=== PATIENT | female | born 2000 | race Caucasian/White ===

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

== ENCOUNTER 2020-06-23 05:17 | Observation (INO) ==
[2020-06-23] MEDS ORDERED: SODIUM CHLORIDE 0.9% 1000ML 1,000 ML IV ONE (05:39)
[2020-06-23] MEDS ORDERED: ONDANSETRON INJ 2 MG/ML 2 ML VIAL IV STA (05:39)
[2020-06-23] MEDS ORDERED: MoRPHine SULFATE 4 MG/ML 1 ML CARP\\VIAL IV STA (05:39)
--- NOTE | 2020-06-23 05:43 | Emergency Department Note ---
History of Present Illness General Chief complaint: Abdominal Pain Stated complaint: ABD PAIN,VOMITING Time Seen by Provider: 06/23/20 05:26 Source: patient Mode of arrival: ambulatory Limitations: no limitations History of Present Illness Maximum Pain Intensity: 8 This patient is a 19-year-old female who presents to the emergency department for evaluation of abdominal pain, vomiting and vaginal bleeding. Patient states that she was recently diagnosed with an ectopic . She was seen here 5 days ago and given methotrexate. She states that 2 days later, she was here due to some pain and it was recommended that she stay, but she wanted to go home. She states that she was doing okay yesterday, but her pain started about 2 hours prior to arrival and became severe. Pain is located across lower abdomen and radiates into the tailbone. She has had vomiting. She states that she has had some vaginal spotting which is brownish in color. She rates her current discomfort an 8/10. She has been taking Tylenol for pain which is no longer giving her any relief. She has had one prior which ended in a full- term normal vaginal delivery. Home Medications Home Medications Medication Instructions Recorded Confirmed Type No Known Home Medications 06/19/20 06/23/20 History Allergies Allergy/AdvReac Type Severity Reaction Status Date / Time amoxicillin Allergy Intermediate swelling Verified 06/23/20 06:02 Penicillins Allergy Intermediate Hives Verified 06/23/20 06:02 Past Med/Surg History Medical History Asthma No known health problems Social History Smoking Status: Never smoker Tobacco Type: Cigarettes Hx Alcohol Use: No Hx Substance Use: No Preferred Language: Frisian Communication Ability: Effective General Contractor Required: No Beliefs That Will Affect Care: None Current Living Situation: Other Current Living Situation Comment: Lives with boyfriend, Laron, and her daughter, Bridget 4 years old Other Information That Helps Us Care for You: No Feels Safe at Home: Yes Review of Systems A total of 10 systems reviewed and were otherwise negative Physical Exam Vital Signs Vital Signs - 24 hr 06/23/20 05:23 06/23/20 07:45 06/23/20 09:19 Temperature 36.4 C L Temperature Source Oral Pulse Rate 83 Pulse Rate [Apical] 96 H 85 Respiratory Rate 18 16 Respiratory Depth Normal Blood Pressure 92/64 L Blood Pressure [Right Arm] 99/62 L 89/52 L Blood Pressure Mean 73 Blood Pressure Mean [Right Arm] 74 64 Pulse Oximetry 98 Oxygen Delivery Method Room Air Sepsis Recent Fever Within 48 Hours No Sepsis New/Unexplained Change in Mental Status N/A Sepsis Action Taken by Nursing No Action Required 06/23/20 10:03 Temperature Temperature Source Pulse Rate 89 Pulse Rate [Apical] Respiratory Rate 16 Respiratory Depth Blood Pressure 95/60 L Blood Pressure [Right Arm] Blood Pressure Mean Blood Pressure Mean [Right Arm] Pulse Oximetry 96 Oxygen Delivery Method Room Air Sepsis Recent Fever Within 48 Hours Sepsis New/Unexplained Change in Mental Status Sepsis Action Taken by Nursing VITALS: Vitals are noted on the nurse's note and reviewed by myself. Vital signs stable. GENERAL: This is a 19-year-old female, in mild distress and appears to be in pain, well-developed well-nourished. SKIN: The skin was without rashes. EARS: External auditory canals clear, tympanic membranes pearly reeves without erythema or effusion bilaterally. EYES: Pupils equal round and reactive to light and accommodation. MOUTH: Mucous membranes moist. Tonsils are not enlarged. Pharynx without er ythema or exudate. NECK: Supple without nuchal rigidity. No lymphadenopathy. HEART: Regular rate and rhythm without murmurs gallops or rubs. LUNGS: Clear to auscultation bilaterally without wheezes, rales or rhonchi. ABDOMEN: Positive bowel sounds x 4. There is tenderness to palpation across lo wer abdomen. No guarding or rebound tenderness. NEURO: Patient was alert and oriented to person place and time. Course Consultations Consultation #1: Dr. Naranjo - COPIER OPERATOR Administered Medications Discontinued Medications Bupivacaine HCl (Bupivacaine 0.5 % 5 Mg/1 Ml Mpf 30ml Vial) Confirm Administered Dose 30 ml .ROUTE .STK-MED ONE Stop: 06/23/20 09:55 Last Admin: 06/23/20 11:11 Dose: 30 ml Documented by: [id number] Sodium Chloride (Nss 1000ml) 1,000 mls @ 999 mls/hr IV .Q1H1M ONE Stop: 06/23/20 06:39 Last Infusion: 06/23/20 07:00 Dose: 0 mls/hr Documented by: [id number] Admin: 06/23/20 05:57 Dose: 999 mls/hr Documented by: [id number] Lactated Ringer's (Lr) 1,000 mls @ 125 mls/hr IV .Q8H OCTAVIO Stop: 06/23/20 13:59 Last Infusion: 06/23/20 16:16 Dose: 0 mls/hr Documented by: [id number] Admin: 06/23/20 14:40 Dose: 125 mls/hr Documented by: [id number] Ibuprofen (Ibuprofen 600 Mg Tab) 600 mg PO Q4H PRN PRN Reason: ANGELO,cramping, or edema Stop: 07/23/20 12:46 Last Admin: 06/23/20 14:40 Dose: 600 mg Documented by: [id number] Menthol (Cough Drop (Sugar Free) Melvin 24 Melvin/1 Box) Confirm Administered Dose 24 melvin BUCCAL .STK-MED ONE Stop: 06/23/20 14:45 Last Admin: 06/23/20 14:44 Dose: 24 melvin Documented by: [id number] Morphine Sulfate (Morphine Sulfate 4 Mg/Ml 1 Ml Carp\Vial) 4 mg IV NOW STA Stop: 06/23/20 05:40 Last Admin: 06/23/20 05:57 Dose: 4 mg Documented by: [id number] Morphine Sulfate (Morphine Sulfate 2 Mg/Ml Carp) 2 mg IV Q2HWA PRN PRN Reason: Pain Stop: 07/07/20 13:32 Last Admin: 06/23/20 13:42 Dose: 2 mg Documented by: [id number] Ondansetron HCl (Ondansetron Inj 2 Mg/Ml 2 Ml Vial) 4 mg IV NOW STA Stop: 06/23/20 05:40 Last Admin: 06/23/20 05:57 Dose: 4 mg Documented by: [id number] Oxycodone/Acetaminophen (Oxycodone/Acetaminophen 5mg/325mg Tab) 1 - 2 tab PO Q4H PRN PRN Reason: ANGELO, Cramping or edema Stop: 07/07/20 12:47 Last Admin: 06/23/20 16:17 Dose: 1 tab Documented by: [id number] Medical Decision Making Differential Diagnosis Differential diagnosis includes ectopic , hemoperitoneum, anemia, among others. Medical Records Attestation: I reviewed the patient's medical records. Home Medications Current Medication List: was personally reviewed by me Laboratory Data Attestation: I reviewed the patient's lab results. Result diagrams: 06/23/20 05:45 06/23/20 05:45 Lab Results 06/23/20 06/23/20 06/23/20 Range/Units 05:45 05:45 05:45 WBC 6.14 (4.8-10.8) K/uL RBC 3.46 L (4.2-5.4) M/uL Hgb 10.7 L (12.0-16.0) g/dL Hct 30.3 L (37-47) % MCV 87.6 (80-100) fL MCH 30.9 (25-34) pg MCHC 35.3 (32-36) g/dL RDW Std Deviation 38.1 (36.4-46.3) fL RDW Coeff of Jamel 11.9 (11.5-14.5) % Plt Count 178 (130-400) K/uL MPV 9.3 (7.4-10.4) fL Immature Gran % (Auto) 0.2 % Neut % (Auto) 66.5 % Lymph % (Auto) 23.6 % Ceiba % (Auto) 7.8 % Eos % (Auto) 1.6 % Baso % (Auto) 0.3 % Neut # (Auto) 4.08 (1.4-6.5) K/uL Lymph # (Auto) 1.45 (1.2-3.4) K/uL Ceiba # (Auto) 0.48 (0.11-0.59) K/uL Eos # (Auto) 0.10 (0-0.5) K/uL Baso # (Auto) 0.02 (0-0.2) K/uL Immature Gran # (Auto) 0.01 (0.00-0.02) K/uL Sodium 139 (136-145) mmol/L Potassium 3.3 L (3.5-5.1) mmol/L Chloride 108 H (98-107) mmol/L Carbon Dioxide 23 (21-32) mmol/L Anion Gap 8.0 (3-11) BUN 8 (7-18) mg/dl Creatinine 0.56 L (0.6-1.2) mg/dl Est Cr Clr Drug Dosing Not Reportable Est GFR ( Amer) > 150.0 Est GFR (Non-Af Amer) 135.2 BUN/Creatinine Ratio 14.6 (10-20) Glucose 99 (70-99) mg/dl Calcium 8.7 (8.5-10.1) mg/dl Total Bilirubin 0.4 (0.2-1) mg/dl AST 13 L (15-37) U/L ALT 22 (12-78) U/L Alkaline Phosphatase 55 (45-117) U/L Total Protein 7.1 (6.4-8.2) gm/dl Albumin 3.5 (3.4-5.0) gm/dl Globulin 3.6 (2.5-4.0) gm/dl Albumin/Globulin Ratio 1.0 (0.9-2) HCG, Quant 3392 mIU/ml Urine Color Urine Appearance (Clear) Urine pH (4.5-7.5) Ur Specific [place] (1.000-1.030) Urine Protein (Negative) Urine Glucose (UA) (Negative) Urine Ketones (Negative) Urine Blood (Negative) Urine Nitrite (Negative) Urine Bilirubin (Negative) Urine Urobilinogen (Negative) Ur Leukocyte Esterase (Negative) Urine WBC (Auto) (0-5) /hpf Urine RBC (Auto) (0-4) /hpf U Hyaline Cast (Auto) (0-5) /lpf U Epithel Cells (Auto) (0-5) /lpf Urine Bacteria (Auto) (Negative) Calcium Oxalate Crystal (None Prsent) 06/23/20 Range/Units 07:07 WBC (4.8-10.8) K/uL RBC (4.2-5.4) M/uL Hgb (12.0-16.0) g/dL Hct (37-47) % MCV (80-100) fL MCH (25-34) pg MCHC (32-36) g/dL RDW Std Deviation (36.4-46.3) fL RDW Coeff of Jamel (11.5-14.5) % Plt Count (130-400) K/uL MPV (7.4-10.4) fL Immature Gran % (Auto) % Neut % (Auto) % Lymph % (Auto) % Ceiba % (Auto) % Eos % (Auto) % Baso % (Auto) % Neut # (Auto) (1.4-6.5) K/uL Lymph # (Auto) (1.2-3.4) K/uL Ceiba # (Auto) (0.11-0.59) K/uL Eos # (Auto) (0-0.5) K/uL Baso # (Auto) (0-0.2) K/uL Immature Gran # (Auto) (0.00-0.02) K/uL Sodium (136-145) mmol/L Potassium (3.5-5.1) mmol/L Chloride (98-107) mmol/L Carbon Dioxide (21-32) mmol/L Anion Gap (3-11) BUN (7-18) mg/dl Creatinine (0.6-1.2) mg/dl Est Cr Clr Drug Dosing Est GFR ( Amer) Est GFR (Non-Af Amer) BUN/Creatinine Ratio (10-20) Glucose (70-99) mg/dl Calcium (8.5-10.1) mg/dl Total Bilirubin (0.2-1) mg/dl AST (15-37) U/L ALT (12-78) U/L Alkaline Phosphatase (45-117) U/L Total Protein (6.4-8.2) gm/dl Albumin (3.4-5.0) gm/dl Globulin (2.5-4.0) gm/dl Albumin/Globulin Ratio (0.9-2) HCG, Quant mIU/ml Urine Color Yellow Urine Appearance Turbid A (Clear) Urine pH 7.5 (4.5-7.5) Ur Specific [place] 1.013 (1.000-1.030) Urine Protein Negative (Negative) Urine Glucose (UA) Negative (Negative) Urine Ketones Negative (Negative) Urine Blood 3+ H (Negative) Urine Nitrite Negative (Negative) Urine Bilirubin Negative (Negative) Urine Urobilinogen Negative (Negative) Ur Leukocyte Esterase 2+ H (Negative) Urine WBC (Auto) 5-10 H (0-5) /hpf Urine RBC (Auto) 0-4 (0-4) /hpf U Hyaline Cast (Auto) 1-5 (0-5) /lpf U Epithel Cells (Auto) >30 H (0-5) /lpf Urine Bacteria (Auto) 2+ H (Negative) Calcium Oxalate Crystal Present A (None Prsent) Imaging Data Attestation: I personally reviewed and interpreted this imaging study as follows: Radiologist's Impression: US ectopic CLINICAL HISTORY: right ectopic , worsening right-sided pelvic pain COMPARISON STUDY: Obstetrical ultrasound 06/21/2020. FINDINGS: There is a thick-walled cystic lesion within the right adnexa which is separate from the ovary. This measures 1.9 x 1.9 cm which is similar in size compared to the prior study. No yolk sac or pole identified. This likely represents an ectopic . Moderate amount of complex free fluid is again identified which favors hemoperitoneum. This is similar to the prior study. Slightly complex cystic focus within the fundus the endometrium is again noted measuring 1.7 x 1.3 x 0.3 cm. This has slightly decreased in size. Bilateral ova franko follicles/cysts persist. Normal color flow within the bilateral ovaries. No uterine masses identified. IMPRESSION: 1. No significant change in 1.9 cm thick-walled cystic focus within the right adnexa which is separate from the ovary likely representing an ectopic . 2. Moderate amount of complex free fluid again noted consistent with hemoperitoneum. Gynecologic consultation recommended. 3. Slight decrease in size in a slightly complex cystic focus within the fundus the endometrium. Blood Pressure Blood Pressure Findings: Low blood pressure MDM Narrative The patient is a 19-year-old female who presents today complaining of worsening abdominal pain and vomiting. Patient has a known right-sided ectopic and was treated with methotrexate 4 days prior. Her beta-hCG has increased slightly to 3392. She is anemic with hemoglobin of 10.7, decreased from her baseline of 12.7. An ultrasound was performed and again shows the right-sided ectopic as well as hemoperitoneum. [facility] COPIER OPERATOR was consulted and will evaluate the patient for further care and likely operative management. Impression & Plan Ectopic , Hemoperitoneum Discharge Plan Visit Data Chief Complaint: Abdominal Pain Stated Complaint: ABD PAIN,VOMITING ED Provider: Jackie Jean ED Midlevel Provider: Yasemin Rodriguez Discharge Problem: Ectopic , Hemoperitoneum Patient Disposition: Still a Patient Condition: Good Discharge Instructions Interventions: ED Discharge Assessment Last Done: 06/23/20 10:03 Discharge Problem: Ectopic Qualifiers: Location of ectopic : tubal Intrauterine status: unspecified Laterality: right Qualified Code(s): O00.101 - Right tubal without intrauterine
[2020-06-23 05:58] LABS: Basophils # (auto) 0.02 K/uL (0-0.2); Basophils % (auto) 0.3 %; Eosinophils % (auto) 1.6 %; Hematocrit (blood only) 30.3 % (37-47); Hemoglobin 10.7 g/dL (12.0-16.0); Immature Granulocytes # (auto) 0.01 K/uL (0.00-0.02); Immature Granulocytes % (auto) 0.2 %; Lymphocytes # (auto) 1.45 K/uL (1.2-3.4); Lymphocytes % (auto) 23.6 %; Mean Corpuscular Hemoglobin 30.9 pg (25-34); Mean Corpuscular Hgb Conc 35.3 g/dL (32-36); Mean Corpuscular Volume 87.6 fL (80-100); Mean Platelet Volume 9.3 fL (7.4-10.4); Monocytes # (auto) 0.48 K/uL (0.11-0.59); Monocytes % (auto) 7.8 %; Neutrophils # (auto) 4.08 K/uL (1.4-6.5); Neutrophils % (auto) 66.5 %; Platelet Count 178 K/uL (130-400); RDW Coefficient of Variation 11.9 % (11.5-14.5); RDW Standard Deviation 38.1 fL (36.4-46.3); Red Blood Count 3.46 M/uL (4.2-5.4); White Blood Count 6.14 K/uL (4.8-10.8)
[2020-06-23] MEDS ORDERED: LACTATED RINGER'S 1,000 ML IV SCH ×3 (06:00→13:00)
[2020-06-23 06:14] LABS: Alanine Aminotransferase 22 U/L (12-78); Albumin Level 3.5 gm/dl (3.4-5.0); Aspartate Aminotransferase 13 U/L (15-37); BUN Creatinine Ratio 14.6 (10-20); Blood Urea Nitrogen 8 mg/dl (7-18); Calcium 8.7 mg/dl (8.5-10.1); Carbon Dioxide 23 mmol/L (21-32); Chloride 108 mmol/L (98-107); Est GFR (African American) > 150.0; Est GFR (Non-African American) 135.2; Glucose 99 mg/dl (70-99); Potassium 3.3 mmol/L (3.5-5.1); Sodium 139 mmol/L (136-145)
[2020-06-23 06:17] LABS: Alkaline Phosphatase 55 U/L (45-117); Bilirubin,Total 0.4 mg/dl (0.2-1); Globulin 3.6 gm/dl (2.5-4.0); Total Protein 7.1 gm/dl (6.4-8.2)
--- NOTE | 2020-06-23 07:25 | Ultrasound Report ---
US ectopic CLINICAL HISTORY: right ectopic , worsening right-sided pelvic pain COMPARISON STUDY: Obstetrical ultrasound 06/21/2020. FINDINGS: There is a thick-walled cystic lesion within the right adnexa which is separate from the ov chauncey. This measures 1.9 x 1.9 cm which is similar in size compared to the prior study. No yolk sac or pole identified. This likely represents an ectopic . Moderate amount of complex free f luid is again identified which favors hemoperitoneum. This is similar to the prior study. Slightly co mplex cystic focus within the fundus the endometrium is again noted measuring 1.7 x 1.3 x 0.3 cm. Thi s has slightly decreased in size. Bilateral ovarian follicles/cysts persist. Normal color flow within the bilateral ovaries. No uterine masses identified. IMPRESSION: 1. No significant change in 1.9 cm thick-walled cystic focus within the right adnexa which is separat e from the ovary likely representing an ectopic . 2. Moderate amount of complex free fluid again noted consistent with hemoperitoneum. Gynecologic cons ultation recommended. 3. Slight decrease in size in a slightly complex cystic focus within the fundus the endometrium. ACT 112: Negative or not required by law. Electronically signed by: Bg Jimenez M.D. 06/23/2020 7:23 AM
[2020-06-23 07:35] LABS: Appearance Urine Turbid (Clear); Bacteria Urine Automated 2+ (Negative); Bilirubin Urine Negative (Negative); Blood Urine 3+ (Negative); Color Urine Yellow; Epithelial Cell Urine Auto >30 /lpf (0-5); Glucose Urine UA Negative (Negative); Ketones Urine Negative (Negative); Leukocyte Esterase Urine 2+ (Negative); Nitrite Urine Negative (Negative); Protein Urine Negative (Negative); RBC Urine Automated 0-4 /hpf (0-4); Specific Gravity Urine 1.013 (1.000-1.030); Urobilinogen Urine Negative (Negative); pH Urine 7.5 (4.5-7.5)
[2020-06-23 08:30] LABS: Calcium Oxalate Crystals Urine Present (None Prsent)
[2020-06-23] MEDS ORDERED: ONDANSETRON INJ 2 MG/ML 2 ML VIAL ONE (09:33)
[2020-06-23] MEDS ORDERED: fentaNYL citrate 100 MCG/2 ML VIAL ONE (09:33)
[2020-06-23] MEDS ORDERED: NEOSTIGMINE METHYLSULFATE 5 MG/5 ML SYR ONE (09:33)
[2020-06-23] MEDS ORDERED: LIDOCAINE HCL 2% 2 ML VIAL/AMP(20MG/ML) INFIL ONE (09:33)
[2020-06-23] MEDS ORDERED: GLYCOPYRROLATE 0.2 MG/ML VIAL ONE (09:33)
[2020-06-23] MEDS ORDERED: MIDAZOLAM HCL 1 MG/ML 2ML VIAL ONE (09:33)
[2020-06-23] MEDS ORDERED: DEXAMETHASONE SOD INJ 4 MG/ML VIAL ONE (09:33)
[2020-06-23] MEDS ORDERED: PROPOFOL IV EMULSION 10 MG/ML 20 ML VIAL IV ONE (09:33)
[2020-06-23] MEDS ORDERED: ONDANSETRON INJ 2 MG/ML 2 ML VIAL IV PRN ×3 (09:36→12:48)
[2020-06-23] MEDS ORDERED: BUPIVACAINE 0.5 % 5 MG/1 ML MPF 30ML VIAL ONE (09:54)
--- NOTE | 2020-06-23 10:10 | History and Physical Report ---
DATE OF ADMISSION: 06/23/2020 CHIEF COMPLAINT: Abdominal pain, right-sided. HISTORY OF PRESENT ILLNESS: The patient is a 19-year-old white female, para 1-0-0-1, who presents today from home to the ER this morning with worsening right lower quadrant pain. The patient had been in the hospital several days ago to rule out ectopic. She was given methotrexate for presumed ectopic on the right side. The patient developed acute pain this morning with onset of nausea and vomiting, presented to the ER. Ultrasound repeated revealed possible ruptured ectopic on the right, free fluid in the peritoneal cavity. PAST MEDICAL HISTORY: Significant for x1, oral surgery for dental procedure without any complications and ear tubes as a child. ALLERGIES: INCLUDE PENICILLIN AND AMOXICILLIN. MEDICATIONS: None. SOCIAL HISTORY: Denies smoking or alcohol. FAMILY HISTORY: Noncontributory. REVIEW OF SYSTEMS: Positive pain, no vaginal bleeding and positive nausea and vomiting. PHYSICAL EXAMINATION: HEENT: Within normal limits. LUNGS: Clear to auscultation. COR: Regular rate and rhythm. ABDOMEN: Soft. There is some tenderness in the right lower quadrant. No guarding or rebound. LABORATORY DATA: HCG has risen to over 3000, 3392. Hemoglobin is 10.7, hematocrit 30.3, platelet count 178 and white count 6.14. All other labs are normal. COVID testing done today was negative. ASSESSMENT: Probable right ectopic . PLAN: Discussed with the patient operative laparoscopy, possible salpingectomy, possible removal of ectopic and hemoperitoneum.
[2020-06-23] MEDS ORDERED: ATROPINE SULFATE 0.1 MG/ML 10ML SYR IV PRN (10:19)
[2020-06-23] MEDS ORDERED: ePHEDrine sulfate 50 MG/ML AMP IV PRN (10:19)
[2020-06-23] MEDS ORDERED: fentaNYL citrate 100 MCG/2 ML VIAL IV PRN (10:19)
--- NOTE | 2020-06-23 10:19 | Anesthesiology Consultation ---
Date of Service June 23, 2020 Assessment & Plan (1) Encounter for pre-operative examination: Chart Review Chart Review: Acceptable Risk for Surgery Consults Requested none ASA [id number] Proposed Anesthesia Anesthesia Type: General Risk / Benefits Reviewed With: PT / POA / Parent / Guardian, Accepts Plan and Informed Consent Obtained History Surgery Operation Date: 06/23/20 07:00 Proposed Procedures p Operative Laparoscopy Possible Salpingectomy - Pramod Naranjo MD Height/Weight Height: 5 ft 5 in Allergies Allergy/AdvReac Type Severity Reaction Status Date / Time amoxicillin Allergy Intermediate swelling Verified 06/23/20 06:02 Penicillins Allergy Intermediate Hives Verified 06/23/20 06:02 Medications Home Medications Medication Instructions Recorded Confirmed Last Taken No Known Home Medications 06/19/20 06/23/20 Unknown Past Medical History Medical History Asthma No known health problems Exercise / Class Metabolic Activity II 4-5 Yardwork/Stairs/Walk up hill Past Anesthesia History No Hx of Anesthesia Complications and No Family Hx of Anesthesia Complications History of PONV No Hx of PONV and No Hx of Motion Sickness Social History Smoking Status: Never smoker Physical Exam Vital Signs Last Vital Signs Temp 97.5 F L 06/23/20 05:23 Pulse 89 06/23/20 10:03 Resp 16 06/23/20 10:03 BP 95/60 L 06/23/20 10:03 Pulse Ox 96 06/23/20 10:03 ENMT Mouth: no dentition abnormality Thyromental Distance: > or= 3.5 Finger Breadths Mallampati Class: II Neck normal visual inspection Respiratory normal respiratory effort Auscultation: lungs clear to auscultation bilaterally Cardiovascular Rate/Rhythm: regular rate and regular rhythm Testing Laboratory Results 06/23/20 05:45 06/23/20 05:45 HCG, Quant 3392 mIU/ml 06/23/20 05:45 Urine Color Yellow 06/23/20 07:07 Urine Appearance Turbid (Clear) A 06/23/20 07:07 Urine pH 7.5 (4.5-7.5) 06/23/20 07:07 Ur Specific [place] 1.013 (1.000-1.030) 06/23/20 07:07 Urine Protein Negative (Negative) 06/23/20 07:07 Urine Glucose (UA) Negative (Negative) 06/23/20 07:07 Urine Ketones Negative (Negative) 06/23/20 07:07 Urine Nitrite Negative (Negative) 06/23/20 07:07 Ur Leukocyte Esterase 2+ (Negative) H 06/23/20 07:07 Urine WBC (Auto) 5-10 /hpf (0-5) H 06/23/20 07:07 Urine RBC (Auto) 0-4 /hpf (0-4) 06/23/20 07:07 U Hyaline Cast (Auto) 1-5 /lpf (0-5) 06/23/20 07:07 U Epithel Cells (Auto) >30 /lpf (0-5) H 06/23/20 07:07 Urine Bacteria (Auto) 2+ (Negative) H 06/23/20 07:07 06/23/20 05:45 HCG, Quant 3392
[2020-06-23] MEDS ORDERED: ROCURONIUM BROMIDE 10 MG/ML 5 ML VIAL IV ONE (11:30)
[2020-06-23] MEDS ORDERED: PHENYLEPHRINE 100MCG/ML 5ML SYR ONE (11:49)
[2020-06-23] MEDS ORDERED: SUCCINYLCHOLINE CHLORIDE 20 MG/ML 10 ML VIAL IV ONE (12:17)
[2020-06-23] MEDS ORDERED: KETOROLAC 30 MG/ML VIAL IV PRN (12:47)
[2020-06-23] MEDS ORDERED: IBUPROFEN 600 MG TAB PO PRN (12:47)
[2020-06-23] MEDS ORDERED: OXYCODONE/ACETAMINOPHEN 5mg/325mg TAB PO PRN (12:48)
[2020-06-23] MEDS ORDERED: MoRPHine SULFATE 2 MG/ML CARP IV PRN (13:33)
--- NOTE | 2020-06-23 13:33 | Anesthesiology Progress Note ---
Date of Service June 23, 2020 Anesthesia Post Procedure Vital Signs Vital Signs: Temp Pulse Pulse Resp BP BP Pulse Ox 06/23/20 12:55 77 20 107/67 100 06/23/20 12:45 69 15 107/66 99 06/23/20 12:35 97.9 F 72 16 109/67 99 06/23/20 12:25 77 18 112/64 97 06/23/20 12:15 65 23 111/64 100 06/23/20 12:07 97.5 F L 92 H 19 115/60 100 06/23/20 10:17 98.2 F 85 16 101/56 L 98 06/23/20 10:03 89 16 95/60 L 96 06/23/20 09:19 85 16 89/52 L 06/23/20 07:45 96 H 99/62 L 06/23/20 05:23 97.5 F L 83 18 92/64 L 98 Pain Intensity Lower Abdomen: Pain Intensity: 4 Transfer of Care Handoff Completed per policy Notes Mental Status: alert / awake / arousable and participated in evaluation Patient Amnestic to Procedure: Yes Nausea / Vomiting: adequately controlled Pain: adequately controlled Airway Patency, RR, SpO2: stable & adequate BP & HR: stable & adequate Hydration State: stable & adequate Anesthetic Complications: no major complications apparent and Pt Satisfied with anesthetic care
--- NOTE | 2020-06-23 14:09 | Operative Report (OR) ---
DATE OF OPERATION: 06/23/2020 PREOPERATIVE DIAGNOSIS: Right ectopic , ruptured. POSTOPERATIVE DIAGNOSES: Right ectopic , ruptured; hemoperitoneum; cornual implant. SURGEON: Pramod Naranjo MD. DRIVERS LICENSE EXAMINER: Dr. De Paz. ESTIMATED BLOOD LOSS: 25 mL. TOTAL FLUIDS: 1000 mL. URINE OUTPUT: 100 mL. ANESTHESIA: General. DRAINS: None. SPECIMENS: Right tube and ectopic . COMPLICATIONS: None. CLINICAL HISTORY: The patient is a 19-year-old female, para 1-0-0-1, who presents to the ER today after worsening abdominal pain and nausea and vomiting. She had methotrexate several days ago. Her hCG titer had risen, presenting with pain. Followup ultrasound reveals fluid in the belly with worsening pain. Diagnosis of a ruptured ectopic was entertained. The patient was brought to the OR for surgery. DESCRIPTION OF PROCEDURE: After satisfactory general endotracheal anesthesia, the patient was prepped and draped in usual sterile fashion. Timeout was called. A red rubber catheter was then used to empty the bladder of clear urine 100 mL. Next, a weighted speculum was placed in the posterior vault of the vagina. A long Allis clamp was used to grasp the anterior lip of the cervix and a HUMI uterine manipulator was inserted and then blown up in the balloon. The vaginal instruments were then removed. Attention was then directed abdominally where an infraumbilical stab wound was made with a #11 knife blade. Prior to this, 0.5% Marcaine was used to anesthetize the area locally. A 5 mm scope was inserted under direct visualization, contents of the abdomen consistent with a ruptured ectopic with hemoperitoneum noted, blood in the gutters and the upper abdomen. The patient was then placed in the Trendelenburg position. Another port was inserted on the left side as a 5 mm port and Nezhat penetration tester was then inserted, and the hemoperitoneum was suctioned and irrigated. The tube was ruptured on the right, not salvageable and a small cornual implant consistent with possible endometriosis was identified. The ovaries bilaterally were found to be within normal limits. There were numerous pelvic adhesions bilaterally. Appendix was visualized and appeared to be normal. A 10 mm probe was inserted through a third port on the left midepigastrium followed by a stab wound. This was inserted and the grasper was inserted and then using the handheld Harmonic device, the tube was then coagulated and cut and then removed. The EndoCatch bag 10 mm was inserted, and the ectopic and tube were placed in the bag and then removed through the third port. The tubal stump was dry upon inspection, the contents of the pelvic cavity were then irrigated to clear. Several clots were removed. The implant was then removed using a grasper. No active bleeding was noted. All remaining gas was then allowed to escape. The large port was closed with 0 Vicryl suture using a Marc-Plascencia device. The 3 remaining ports were then closed subcuticular with 4-0 Monocryl suture. Steri-Strips were then applied. The HUMI retractor was then removed. All remaining sponge, needle and instrument counts were found to be correct. The patient was then placed supine. She was moved to recovery room in stable condition to be discharged later today. I attest to the content of the Intraoperative Record and any orders documented therein. Any exceptions are noted below. DHARMESH
[2020-06-23] MEDS ORDERED: Nursing to Pharmacy Communication SCH (14:15)
[2020-06-23] MEDS ORDERED: COUGH DROP (SUGAR FREE) LOZ 24 LOZ/1 BOX BUCCAL ONE (14:44)
[2020-06-24] MEDS ORDERED: DEXAMETHASONE SOD INJ 4 MG/ML VIAL IV SCH (06:00)
--- NOTE | 2020-07-03 14:39 | Discharge Summary (DS) ---
REASON FOR ADMISSION: Right lower quadrant pain. HISTORY OF PRESENT ILLNESS: The patient is a 19-year-old female, para 1-0-0-1, who presents to the ER with right lower quadrant pain. The patient had received methotrexate in the ER several days ago, presents with acute right lower quadrant pain, presenting like a ruptured ectopic . The patient was taken to the operating room where an operative laparoscopy and salpingectomy were performed and aspiration of hemoperitoneum. The patient was stable on admission. Right ectopic was identified. The procedure was detailed in the operative note. There was also cornual implant that was biopsied. No active bleeding was noted at the end of the procedure. The patient was stable and she was discharged home on 06/23/2020 in stable condition. Home going instructions were given. CONDITION ON DISCHARGE: Stable. MEDICATIONS: Include Motrin for pain. Regular diet on discharge and follow up in the office in 1 week for an incision check.
--- NOTE | 2020-07-20 17:37 | Operative Report (OR) ---
DATE OF OPERATION: 06/23/2020 ADDENDUM: I document that Dr. De Paz was the billing and accounting staff assistant. She was needed for assistance at operating multiple ports with various instruments and camera and expertise and operative laparoscopy. There was no qualified resident or other person who was available to scrub at the time and was needed due to her expertise and experience. She was able to manipulate the camera and ports and assisted in taking out the ectopic . I attest to the content of the Intraoperative Record and any orders documented therein. Any exceptions are noted below. DHARMESH
== END 2020-06-23 18:40 | disposition home or self-care (01) ==
LOC: ED 05:17 → 4N 10:03 → OR 10:03

== ENCOUNTER 2020-12-14 17:44 | Observation (INO) ==
--- NOTE | 2020-12-14 19:20 | Emergency Department Note ---
Impression & Plan Ruptured left tubal ectopic causing hemoperitoneum, Abdominal pain ED Provider Note NAME: CARLY HAMMOND AGE: 20 SEX: F : 2000 ARRIVES VIA: Walk-In INFORMANT: Patient ED PROVIDER(S): Serge Pierre DO CHIEF COMPLAINT: Vaginal bleeding HPI: Patient is a G3, P1 with 1 previous that presents to the ER for vaginal bleeding. Her symptoms initially started this past Friday and she was passing small amounts of blood. She is having a small amount of abdominal cramping. Bleeding picked up over the past 24 hours and she passed several omayra ts with some small tissue. She is going through about a pad every other hour. She denies any dysuria urgency or frequency. Since she passed the left clot/tissue she has no belly pain. No chest pain shortness of breath. No dizziness lightheadedness. No other exacerbating or remitting factors. She is following with [facility] BOAT RENTAL CLERK. They were ordering outpatient beta hCGs. She has no abdominal pain at this time. She is a past medical history of a previous ectopic . ROS: See above HPI for pertinent positives & negatives. A total of 10 systems reviewed and were otherwise negative. PAST MEDICAL HISTORY:See Below PAST SURGICAL HISTORY:See Below FAMILY HISTORY:See Below SOCIAL HISTORY:See Below HOME MEDICATIONS:See Below ALLERGIES:See Below VITALS:See Below PHYSICAL EXAMINATION: GENERAL: Sitting up in bed, alert, well appearing, well nourished, no distress, non-toxic EYE EXAM: normal conjunctiva. OROPHARYNX: no exudate, no erythema, lips, buccal mucosa, and tongue normal and mucous membranes are moist NECK: supple, no nuchal rigidity, no adenopathy, non-tender LUNGS: Clear to auscultation. Normal chest wall mechanics HEART: no murmurs, S1 normal and S2 normal ABDOMEN: abdomen soft, non-tender, normo-active bowel sounds, no masses, no rebound or guarding. UPPER EXTREMITIES: upper extremities are grossly normal. LOWER EXTREMITIES: No pitting edema. NEURO EXAM: Normal sensorium, cranial nerves II-XII grossly intact, normal speech, no gross weakness of arms, no gross weakness of legs. MEDICAL DECISION MAKING: Patient is a 20-year-old female presents ER for abdominal pain associate with vaginal bleeding. History of ectopic . IV was established blood work was obtained. Labs show no significant leukocytosis or anemia. INR unremarkable. BMP with LFTs bilirubin was unremarkable. hCG was 1700 down from 2200. Urine was contaminated. Covid was negative. Patient is O+. Ultrasound shows left ovarian mass which is new with complex fluid in the pelvis consistent with a ruptured ectopic. BOAT RENTAL CLERK was consulted and patient was taken emergently to the OR. Triage Nursing notes reviewed. Limited review of prior medical records performed Vital Signs: reviewed and remarkable for no significant abnormalities Differential diagnosis: Etiologies such as threatened AB, miscarriage, ectopic , dysfunction uterine bleeding, bleeding dyscrasia, trauma, infection, as well as others were entertained. ER treatment provided: See below Diagnostics interpreted by me: ECG: none Cardiac Monitoring: An order was placed for continuous cardiac monitoring. The monitor shows a rate of 82 with sinus rhythm. Laboratory studies: As stated above and show below. Imaging studies: Ultrasound shows a ruptured left ectopic Consultation(s): Discussed with Dr. Naranjo who evaluated the patient at bedside took him to the ER. Procedures: none Critical Care: I have personally spent 32 minutes of critical care time in the direct manage ment of this patient. This includes bedside care, interpretation of diagnostic studies, and testing, discussion with consultants, patient, and family members, and other required patient management activities. This 32 minutes is in excess of all separately billable procedures. Past Med/Surg History Medical History Acquired deviated nasal septum Allergic rhinitis Asthma Chronic sinusitis GERD (gastroesophageal reflux disease) Surgical History History of myringotomy As History of unilateral salpingectomy Right for ruptured ectopic 06/2020 Family History Other Allergies Asthma No family history of adverse response to anesthesia No family history of bleeding disorder Social History Smoking Status: Current every day smoker Tobacco Type: E-cigarettes / Vaping Hx Alcohol Use: No Hx Substance Use: No Preferred Language: Central African Communication Ability: Effective Space Control Agent Required: No Beliefs That Will Affect Care: None Current Living Situation: Other Current Living Situation Comment: Lives with boyfriend, Laron, and her daughter, Bridget 4 years old Feels Safe at Home: Yes Assistive Devices: None Allergies Allergies Allergy/AdvReac Type Severity Reaction Status Date / Time amoxicillin Allergy Intermediate swelling Verified 12/14/20 22:14 Penicillins Allergy Intermediate Hives Verified 12/14/20 22:14 Home Meds Home Medications Medication Instructions Recorded Confirmed acetaminophen [Tylenol Extra 100 mg PO Q6H PRN 12/14/20 12/14/20 Strength] [id number] 1 tab PO DAILY 12/14/20 12/14/20 [] Results & Data (ED) Vital Signs Vital Signs - 24 hr 12/14/20 17:52 12/14/20 19:28 12/14/20 19:30 Temperature 36.4 C L Temperature Source Temporal Artery Scan Pulse Rate 86 84 85 Pulse Rate from SpO2 Sensor 85 81 Respiratory Rate 18 20 20 Respiratory Effort / Characteristics Non-Labored Spontaneous Respiratory Depth Normal Respiratory Pattern Regular Blood Pressure 110/71 126/74 116/71 Blood Pressure Mean 84 91 86 Pulse Oximetry 100 99 98 Oxygen Delivery Method Room Air Sepsis Recent Fever Within 48 Hours No Sepsis New/Unexplained Change in Mental Status No Sepsis Action Taken by Nursing No Action Required 12/14/20 19:32 12/14/20 19:33 12/14/20 19:40 Temperature Temperature Source Pulse Rate 85 86 Pulse Rate from SpO2 Sensor 83 Respiratory Rate 15 26 H Respiratory Effort / Characteristics Respiratory Depth Respiratory Pattern Blood Pressure Blood Pressure Mean Pulse Oximetry 99 98 Oxygen Delivery Method Room Air Sepsis Recent Fever Within 48 Hours Sepsis New/Unexplained Change in Mental Status Sepsis Action Taken by Nursing 12/14/20 20:00 12/14/20 20:01 12/14/20 21:06 Temperature Temperature Source Pulse Rate 93 H 96 H 87 Pulse Rate from SpO2 Sensor 96 H 96 H Respiratory Rate 25 H 24 20 Respiratory Effort / Characteristics Respiratory Depth Respiratory Pattern Blood Pressure 112/71 103/70 Blood Pressure Mean 84 81 Pulse Oximetry 100 100 Oxygen Delivery Method Sepsis Recent Fever Within 48 Hours Sepsis New/Unexplained Change in Mental Status Sepsis Action Taken by Nursing 12/14/20 23:10 Temperature Temperature Source Pulse Rate 85 Pulse Rate from SpO2 Sensor Respiratory Rate 18 Respiratory Effort / Characteristics Respiratory Depth Respiratory Pattern Blood Pressure 103/64 Blood Pressure Mean Pulse Oximetry 95 Oxygen Delivery Method Room Air Sepsis Recent Fever Within 48 Hours Sepsis New/Unexplained Change in Mental Status Sepsis Action Taken by Nursing Laboratory Data Result diagrams: 12/14/20 19:34 12/14/20 19:34 Lab Results 12/14/20 12/14/20 12/14/20 Range/Units 19:34 19:34 19:34 WBC 7.27 (4.8-10.8) K/uL RBC 4.24 (4.2-5.4) M/uL Hgb 12.7 (12.0-16.0) g/dL Hct 37.6 (37-47) % MCV 88.7 (80-100) fL MCH 30.0 (25-34) pg MCHC 33.8 (32-36) g/dL RDW Std Deviation 39.8 (36.4-46.3) fL RDW Coeff of Jamel 12.4 (11.5-14.5) % Plt Count 219 (130-400) K/uL MPV 9.7 (7.4-10.4) fL Immature Gran % (Auto) 0.1 % Neut % (Auto) 70.4 % Lymph % (Auto) 17.7 % [place] % (Auto) 9.5 % Eos % (Auto) 1.9 % Baso % (Auto) 0.4 % Neut # (Auto) 5.11 (1.4-6.5) K/uL Lymph # (Auto) 1.29 (1.2-3.4) K/uL [place] # (Auto) 0.69 H (0.11-0.59) K/uL Eos # (Auto) 0.14 (0-0.5) K/uL Baso # (Auto) 0.03 (0-0.2) K/uL Immature Gran # (Auto) 0.01 (0.00-0.02) K/uL PT 9.8 (9.0-12.0) Seconds INR 1.0 (0.9-1.1) APTT 27.1 (21.0-31.0) Seconds PTT Ratio 1.0 Sodium (136-145) mmol/L Potassium (3.5-5.1) mmol/L Chloride (98-107) mmol/L Carbon Dioxide (21-32) mmol/L Anion Gap (3-11) BUN (7-18) mg/dl Creatinine (0.6-1.2) mg/dl Est Cr Clr Drug Dosing ml/min Est GFR ( Amer) Est GFR (Non-Af Amer) BUN/Creatinine Ratio (10-20) Glucose (70-99) mg/dl Calcium (8.5-10.1) mg/dl Total Bilirubin (0.2-1) mg/dl AST (15-37) U/L ALT (12-78) U/L Alkaline Phosphatase (45-117) U/L Total Protein (6.4-8.2) gm/dl Albumin (3.4-5.0) gm/dl Globulin (2.5-4.0) gm/dl Albumin/Globulin Ratio (0.9-2) HCG, Quant mIU/ml Urine Color Urine Appearance (Clear) Urine pH (4.5-7.5) Ur Specific Atco (1.000-1.030) Urine Protein (Negative) Urine Glucose (UA) (Negative) Urine Ketones (Negative) Urine Blood (Negative) Urine Nitrite (Negative) Urine Bilirubin (Negative) Urine Urobilinogen (Negative) Ur Leukocyte Esterase (Negative) Urine WBC (Auto) (0-5) /hpf Urine RBC (Auto) (0-4) /hpf U Hyaline Cast (Auto) (0-5) /lpf U Epithel Cells (Auto) (0-5) /lpf Urine Bacteria (Auto) (Negative) Ur Renal Epithelial Cell Urine Yeast POC Ur Test (NEG) COVID-19 Eval Order SARS-CoV-2 (PCR) (Negative) Influenza Type A (PCR) (Neg) Influenza Type B (PCR) (Neg) RSV (RT-PCR) (Neg) Blood Type O Positive 12/14/20 12/14/20 12/14/20 Range/Units 19:34 19:34 21:30 WBC (4.8-10.8) K/uL RBC (4.2-5.4) M/uL Hgb (12.0-16.0) g/dL Hct (37-47) % MCV (80-100) fL MCH (25-34) pg MCHC (32-36) g/dL RDW Std Deviation (36.4-46.3) fL RDW Coeff of Jamel (11.5-14.5) % Plt Count (130-400) K/uL MPV (7.4-10.4) fL Immature Gran % (Auto) % Neut % (Auto) % Lymph % (Auto) % [place] % (Auto) % Eos % (Auto) % Baso % (Auto) % Neut # (Auto) (1.4-6.5) K/uL Lymph # (Auto) (1.2-3.4) K/uL [place] # (Auto) (0.11-0.59) K/uL Eos # (Auto) (0-0.5) K/uL Baso # (Auto) (0-0.2) K/uL Immature Gran # (Auto) (0.00-0.02) K/uL PT (9.0-12.0) Seconds INR (0.9-1.1) APTT (21.0-31.0) Seconds PTT Ratio Sodium 139 (136-145) mmol/L Potassium 3.5 (3.5-5.1) mmol/L Chloride 105 (98-107) mmol/L Carbon Dioxide 26 (21-32) mmol/L Anion Gap 8.0 (3-11) BUN 8 (7-18) mg/dl Creatinine 0.60 (0.6-1.2) mg/dl Est Cr Clr Drug Dosing 147.4 ml/min Est GFR ( Amer) > 150.0 Est GFR (Non-Af Amer) 131.2 BUN/Creatinine Ratio 12.6 (10-20) Glucose 79 (70-99) mg/dl Calcium 9.1 (8.5-10.1) mg/dl Total Bilirubin 0.3 (0.2-1) mg/dl AST 10 L (15-37) U/L ALT 26 (12-78) U/L Alkaline Phosphatase 69 (45-117) U/L Total Protein 7.7 (6.4-8.2) gm/dl Albumin 4.0 (3.4-5.0) gm/dl Globulin 3.7 (2.5-4.0) gm/dl Albumin/Globulin Ratio 1.1 (0.9-2) HCG, Quant 1719 mIU/ml Urine Color Urine Appearance (Clear) Urine pH (4.5-7.5) Ur Specific Atco (1.000-1.030) Urine Protein (Negative) Urine Glucose (UA) (Negative) Urine Ketones (Negative) Urine Blood (Negative) Urine Nitrite (Negative) Urine Bilirubin (Negative) Urine Urobilinogen (Negative) Ur Leukocyte Esterase (Negative) Urine WBC (Auto) (0-5) /hpf Urine RBC (Auto) (0-4) /hpf U Hyaline Cast (Auto) (0-5) /lpf U Epithel Cells (Auto) (0-5) /lpf Urine Bacteria (Auto) (Negative) Ur Renal Epithelial Cell Urine Yeast POC Ur Test (NEG) COVID-19 Eval Order CovFluRsv at [facility] SARS-CoV-2 (PCR) (Negative) Influenza Type A (PCR) (Neg) Influenza Type B (PCR) (Neg) RSV (RT-PCR) (Neg) Blood Type 12/14/20 12/14/20 12/14/20 Range/Units 21:30 Unknown Unknown WBC (4.8-10.8) K/uL RBC (4.2-5.4) M/uL Hgb (12.0-16.0) g/dL Hct (37-47) % MCV (80-100) fL MCH (25-34) pg MCHC (32-36) g/dL RDW Std Deviation (36.4-46.3) fL RDW Coeff of Jamel (11.5-14.5) % Plt Count (130-400) K/uL MPV (7.4-10.4) fL Immature Gran % (Auto) % Neut % (Auto) % Lymph % (Auto) % [place] % (Auto) % Eos % (Auto) % Baso % (Auto) % Neut # (Auto) (1.4-6.5) K/uL Lymph # (Auto) (1.2-3.4) K/uL [place] # (Auto) (0.11-0.59) K/uL Eos # (Auto) (0-0.5) K/uL Baso # (Auto) (0-0.2) K/uL Immature Gran # (Auto) (0.00-0.02) K/uL PT (9.0-12.0) Seconds INR (0.9-1.1) APTT (21.0-31.0) Seconds PTT Ratio Sodium (136-145) mmol/L Potassium (3.5-5.1) mmol/L Chloride (98-107) mmol/L Carbon Dioxide (21-32) mmol/L Anion Gap (3-11) BUN (7-18) mg/dl Creatinine (0.6-1.2) mg/dl Est Cr Clr Drug Dosing ml/min Est GFR ( Amer) Est GFR (Non-Af Amer) BUN/Creatinine Ratio (10-20) Glucose (70-99) mg/dl Calcium (8.5-10.1) mg/dl Total Bilirubin (0.2-1) mg/dl AST (15-37) U/L ALT (12-78) U/L Alkaline Phosphatase (45-117) U/L Total Protein (6.4-8.2) gm/dl Albumin (3.4-5.0) gm/dl Globulin (2.5-4.0) gm/dl Albumin/Globulin Ratio (0.9-2) HCG, Quant mIU/ml Urine Color Red Urine Appearance Clear (Clear) Urine pH 7.0 (4.5-7.5) Ur Specific Atco 1.005 (1.000-1.030) Urine Protein 1+ H (Negative) Urine Glucose (UA) Negative (Negative) Urine Ketones Negative (Negative) Urine Blood 3+ H (Negative) Urine Nitrite Negative (Negative) Urine Bilirubin Negative (Negative) Urine Urobilinogen Negative (Negative) Ur Leukocyte Esterase 1+ H (Negative) Urine WBC (Auto) 10-30 H (0-5) /hpf Urine RBC (Auto) >30 H (0-4) /hpf U Hyaline Cast (Auto) 1-5 (0-5) /lpf U Epithel Cells (Auto) >30 H (0-5) /lpf Urine Bacteria (Auto) Negative (Negative) Ur Renal Epithelial Cell Not Reportable Urine Yeast Not Reportable POC Ur Test POS (NEG) COVID-19 Eval Order SARS-CoV-2 (PCR) NEGATIVE (Negative) Influenza Type A (PCR) Negative (Neg) Influenza Type B (PCR) Negative (Neg) RSV (RT-PCR) Negative (Neg) Blood Type Discharge Plan Visit Data Chief Complaint: Vaginal Bleeding Stated Complaint: MISCARRIAGE ED Provider: Serge Pierre Discharge Problem: Ruptured left tubal ectopic causing hemoperitoneum, Abdominal pain Patient Disposition: Still a Patient Discharge Instructions Interventions: ED Discharge Assessment Last Done: 12/14/20 23:10 Discharge Problem: Abdominal pain Qualifiers: Abdominal location: unspecified location Qualified Code(s): R10.9 - Unspecified abdominal pain
[2020-12-14 20:05] LABS: Basophils # (auto) 0.03 K/uL (0-0.2); Basophils % (auto) 0.4 %; Eosinophils # (auto) 0.14 K/uL (0-0.5); Eosinophils % (auto) 1.9 %; Hematocrit (blood only) 37.6 % (37-47); Hemoglobin 12.7 g/dL (12.0-16.0); Immature Granulocytes # (auto) 0.01 K/uL (0.00-0.02); Immature Granulocytes % (auto) 0.1 %; Lymphocytes # (auto) 1.29 K/uL (1.2-3.4); Lymphocytes % (auto) 17.7 %; Mean Corpuscular Hgb Conc 33.8 g/dL (32-36); Mean Corpuscular Volume 88.7 fL (80-100); Mean Platelet Volume 9.7 fL (7.4-10.4); Monocytes # (auto) 0.69 K/uL (0.11-0.59); Monocytes % (auto) 9.5 %; Neutrophils # (auto) 5.11 K/uL (1.4-6.5); Neutrophils % (auto) 70.4 %; Platelet Count 219 K/uL (130-400); RDW Coefficient of Variation 12.4 % (11.5-14.5); RDW Standard Deviation 39.8 fL (36.4-46.3); Red Blood Count 4.24 M/uL (4.2-5.4); White Blood Count 7.27 K/uL (4.8-10.8)
[2020-12-14 20:20] LABS: Alanine Aminotransferase 26 U/L (12-78); Aspartate Aminotransferase 10 U/L (15-37); BUN Creatinine Ratio 12.6 (10-20); Blood Urea Nitrogen 8 mg/dl (7-18); Calcium 9.1 mg/dl (8.5-10.1); Carbon Dioxide 26 mmol/L (21-32); Chloride 105 mmol/L (98-107); Creatinine Clr Calc Pharmacy 147.4 ml/min; Est GFR (African American) > 150.0; Est GFR (Non-African American) 131.2; Glucose 79 mg/dl (70-99); Potassium 3.5 mmol/L (3.5-5.1); Sodium 139 mmol/L (136-145)
[2020-12-14 20:21] LABS: Appearance Urine Clear (Clear); Bacteria Urine Automated Negative (Negative); Bilirubin Urine Negative (Negative); Blood Urine 3+ (Negative); Color Urine Red; Epithelial Cell Urine Auto >30 /lpf (0-5); Glucose Urine UA Negative (Negative); Ketones Urine Negative (Negative); Leukocyte Esterase Urine 1+ (Negative); Nitrite Urine Negative (Negative); Protein Urine 1+ (Negative); Specific Gravity Urine 1.005 (1.000-1.030); Urobilinogen Urine Negative (Negative)
[2020-12-14 20:23] LABS: Albumin Globulin Ratio 1.1 (0.9-2); Alkaline Phosphatase 69 U/L (45-117); Bilirubin,Total 0.3 mg/dl (0.2-1); Globulin 3.7 gm/dl (2.5-4.0); Total Protein 7.7 gm/dl (6.4-8.2)
[2020-12-14 20:28] LABS: Partial Thromboplastin Time 27.1 Seconds (21.0-31.0); Prothrombin Time 9.8 Seconds (9.0-12.0)
[2020-12-14 20:42] LABS: RBC Urine Automated >30 /hpf (0-4)
--- NOTE | 2020-12-14 20:56 | Ultrasound Report ---
ULTRASOUND OF THE PELVIS CLINICAL HISTORY: Vaginal bleeding. COMPARISON STUDY: Pelvic ultrasound dated 12/11/2020. TECHNIQUE: Real-time, grayscale, and color flow sonography of the pelvis is performed both transabdom inally and endovaginally. Images are reviewed in the transverse and longitudinal planes. FINDINGS: Uterus: The uterus is normal in size and echotexture, measuring 8.0 x 4.0 x 4.6 cm. Endometrium: No intrauterine gestation is identified. The endometrium is normal in appearance, and th e endometrial stripe is normal in thickness measuring up to 0.7 cm. Minimal complex fluid is present within the endometrium near the fundal region. Ovaries: The ovaries are normal in size and morphology. The right ovary measures 3.6 x 1.5 x 2.0 cm a nd the left ovary measures 3.1 x 1.4 x 3.5 cm. There are bilateral ovarian follicles. Normal Doppler waveforms are shown within both ovaries. Pelvis: There is a small volume of complex free fluid in the cul-de-sac posterior to the uterus and i n the left adnexa. There is a complex avascular structure identified adjacent to the left ovary. This measures 2.0 x 2.4 x 1.4 cm, and there is likely trace surrounding hemorrhage. This shows internal f low on color imaging. IMPRESSION: 1. No intrauterine gestation is identified. 2. There is a 2.4 cm complex structure in the left adnexa adjacent to the ovary. There is likely surr ounding hemorrhage, and this was not present on the 12/11/2011 examination. This is concerning for ecto pic . Gynecological evaluation is recommended. 3. A small volume of complex free fluid in the pelvis may represent blood products. This could be see n with a ruptured ectopic. 4. The ovaries are normal as visualized. 5. Minimal complex fluid within the endometrial canal likely represents blood products. ACT 112: Negative or not required by law. Electronically signed by: Vineet Jimenez M.D. 12/14/2020 8:55 PM
--- NOTE | 2020-12-14 22:25 | History & Physical Report ---
Date of Service December 14, 2020 Assessment & Plan (1) Ruptured left tubal ectopic causing hemoperitoneum: Admission and Anticipated Discharge Date Admission Date: 12/15/20 Anticipated date of discharge: 06/19/20 (12/15/20) History of Present Illness 20 F [id number] who presents to ER health system with vagianl bleeding. HCG levels were not rising appropriately i the office. Tonight ultrasound reveals probable left ruptured ectopic with hemoperitoneum. No significant abdominal pain. Primary Care Provider: Velma Mg Allergies Allergy/AdvReac Type Severity Reaction Status Date / Time amoxicillin Allergy Intermediate swelling Verified 12/14/20 22:14 Penicillins Allergy Intermediate Hives Verified 12/14/20 22:14 Home Medications Medication Instructions Recorded Confirmed Type acetaminophen [Tylenol Extra 100 mg PO Q6H PRN 12/14/20 12/14/20 History Strength] icyzjbww-[id number] 1 tab PO DAILY 12/14/20 12/14/20 History [] Past Med/Surg History Medical History Acquired deviated nasal septum Allergic rhinitis Asthma Chronic sinusitis GERD (gastroesophageal reflux disease) Surgical History History of myringotomy As History of unilateral salpingectomy Right for ruptured ectopic 06/2020 Family History (Updated 12/05/20 @ 09:52 by Kaitlin Weinberg MA) Other Allergies Asthma No family history of adverse response to anesthesia No family history of bleeding disorder Social History Smoking Status: Current every day smoker Tobacco Type: E-cigarettes / Vaping Hx Alcohol Use: No Hx Substance Use: No Preferred Language: Portuguese Communication Ability: Effective Nut Processing Supervisor Required: No Beliefs That Will Affect Care: None Current Living Situation: Other Current Living Situation Comment: Lives with boyfriend, Laron, and her daughter, Bridget 4 years old Feels Safe at Home: Yes Assistive Devices: None Review of Systems Review of Systems: All systems reviewed & are unremarkable except as noted in HPI & below Physical Exam Constitutional: WD/WN, vitals as above comfortable Eyes: PERRL, conjunctivae normal, anicteric sclerae Neck: trachea midline, no thyromegaly Respiratory: normal respiratory effort, lungs clear to auscultation Cardiovascular: RRR, no murmur, no edema Rate/Rhythm: regular rate Gastrointestinal (Abdomen): Inspection/Auscultation: abdomen normal to inspection Percussion/Palpation: abdomen soft no guarding or rebound Skin: no rashes, warm and dry Neurologic: patellar DTR's 2+ bilat, sensation intact Psychiatric: A+Ox3, euthymic affect Genitourinary: normal external appearance Results & Data Results & Data ([facility]) Vital Signs (Past 12 Hours) Vital Signs Temp Pulse Resp BP Pulse Ox 12/14/20 21:06 87 20 103/70 12/14/20 20:01 96 H 24 100 12/14/20 20:00 93 H 25 H 112/71 100 12/14/20 19:40 86 26 H 12/14/20 19:33 98 12/14/20 19:32 85 15 99 12/14/20 19:30 85 20 116/71 98 12/14/20 19:28 84 20 126/74 99 12/14/20 17:52 36.4 C L 86 18 110/71 100
--- NOTE | 2020-12-14 22:28 | Anesthesiology Consultation ---
Date of Service December 14, 2020 Assessment & Plan Chart Review Chart Review: Acceptable Risk for Surgery and Patient NOT seen in Pre Admission Testing Consults Requested none ASA ASA2E Proposed Anesthesia Anesthesia Type: General Risk / Benefits Reviewed With: PT / POA / Parent / Guardian, Accepts Plan and Informed Consent Obtained History Height/Weight Height: 5 ft 5 in Weight: 70.6 kg Allergies Allergy/AdvReac Type Severity Reaction Status Date / Time amoxicillin Allergy Intermediate swelling Verified 12/14/20 22:14 Penicillins Allergy Intermediate Hives Verified 12/14/20 22:14 Medications Home Medications Medication Instructions Recorded Confirmed Last Taken acetaminophen [Tylenol Extra 100 mg PO Q6H PRN 12/14/20 12/14/20 12/14/20 12:00 Strength] dbuzeodo-[id number]-FA 1 tab PO DAILY 12/14/20 12/14/20 Unknown [] NPO Date Last Intake of Fluids: 12/14/20 Time Last Intake of Fluids: 18:00 Date Last Intake of Solids: 12/14/20 Time Last Intake of Solids: 13:00 Past Medical History Medical History Acquired deviated nasal septum Allergic rhinitis Asthma Chronic sinusitis GERD (gastroesophageal reflux disease) Exercise / Class Metabolic Activity II 4-5 Yardwork/Stairs/Walk up hill Past Family History Family History Other Allergies Asthma No family history of adverse response to anesthesia No family history of bleeding disorder Past Surgical History Surgical History History of myringotomy As infant History of unilateral salpingectomy Right for ruptured ectopic 06/2020 Past Anesthesia History No Hx of Anesthesia Complications and No Family Hx of Anesthesia Complications History of PONV No Hx of PONV and No Hx of Motion Sickness Social History Smoking Status: Current every day smoker Hx Alcohol Use: No Hx Substance Use: No Physical Exam Vital Signs Last Vital Signs Temp 36.4 C L 12/14/20 17:52 Pulse 87 12/14/20 21:06 Resp 20 12/14/20 21:06 BP 103/70 12/14/20 21:06 Pulse Ox 100 12/14/20 20:01 Constitutional average body habitus ENMT Mouth: no dentition abnormality Thyromental Distance: < 3.5 Finger Breadths Mallampati Class: II Neck normal visual inspection and trachea midline; neck extension not limited Respiratory normal respiratory effort Auscultation: lungs clear to auscultation bilaterally Cardiovascular Rate/Rhythm: regular rate and regular rhythm Heart Sounds: no murmur Vessels: no carotid bruit Musculoskeletal Spine: normal cervical ROM Extremities: extremities normal to inspection Neurologic moves all extremities Motor/Sensory: no sensory deficit Psychiatric Orientation: alert and oriented x 3 Testing Laboratory Results 12/14/20 19:34 12/14/20 19:34 PT 9.8 Seconds (9.0-12.0) 12/14/20 19:34 INR 1.0 (0.9-1.1) 12/14/20 19:34 APTT 27.1 Seconds (21.0-31.0) 12/14/20 19:34 HCG, Quant 1719 mIU/ml 12/14/20 19:34 Urine Color Red 12/14/20 Unknown Urine Appearance Clear (Clear) 12/14/20 Unknown Urine pH 7.0 (4.5-7.5) 12/14/20 Unknown Ur Specific [place] 1.005 (1.000-1.030) 12/14/20 Unknown Urine Protein 1+ (Negative) H 12/14/20 Unknown Urine Glucose (UA) Negative (Negative) 12/14/20 Unknown Urine Ketones Negative (Negative) 12/14/20 Unknown Urine Nitrite Negative (Negative) 12/14/20 Unknown Ur Leukocyte Esterase 1+ (Negative) H 12/14/20 Unknown Urine WBC (Auto) 10-30 /hpf (0-5) H 12/14/20 Unknown Urine RBC (Auto) >30 /hpf (0-4) H 12/14/20 Unknown U Hyaline Cast (Auto) 1-5 /lpf (0-5) 12/14/20 Unknown U Epithel Cells (Auto) >30 /lpf (0-5) H 12/14/20 Unknown Urine Bacteria (Auto) Negative (Negative) 12/14/20 Unknown Blood Type O Positive 12/14/20 19:34 12/14/20 12/14/20 Unknown 19:34 HCG, Quant 1719 POC Ur Test POS
[2020-12-14] MEDS ORDERED: PROMETHAZINE HCL 12.5 MG in SODIUM CHLORIDE 0.9% 50 ML IV PRN (22:29)
[2020-12-14] MEDS ORDERED: fentaNYL citrate 100 MCG/2 ML VIAL IV PRN (22:29)
[2020-12-14] MEDS ORDERED: FLUMAZENIL 0.1 MG/1 ML 10 ML VIAL IV PRN (22:29)
[2020-12-14] MEDS ORDERED: ATROPINE SULFATE 0.1 MG/ML 10ML SYR IV PRN (22:29)
[2020-12-14] MEDS ORDERED: ePHEDrine sulfate 50 MG/ML AMP IV PRN (22:29)
[2020-12-14] MEDS ORDERED: ONDANSETRON INJ 2 MG/ML 2 ML VIAL IV PRN (22:29)
[2020-12-14] MEDS ORDERED: NALOXONE HCL 0.4 MG/1 ML VIAL/CARP IV PRN (22:29)
[2020-12-14 22:46] LABS: Influenza A virus by PCR Negative (Neg); Influenza B virus by PCR Negative (Neg); RSV by PCR Negative (Neg); SARS CoV2 RNA(COVID-19) InHosp NEGATIVE (Negative)
[2020-12-14] MEDS ORDERED: BUPIVACAINE 0.5 % 5 MG/1 ML MPF 30ML VIAL ONE (22:47)
[2020-12-14] MEDS ORDERED: PROPOFOL IV EMULSION 10 MG/ML 20 ML VIAL IV ONE (23:14)
[2020-12-14] MEDS ORDERED: fentaNYL citrate 100 MCG/2 ML VIAL ONE ×2 (23:17→23:56)
[2020-12-14] MEDS ORDERED: CISATRACURIUM BESYLATE IV SOLN 2 MG/ML 10 ML VIAL IV ONE (23:17)
[2020-12-14] MEDS ORDERED: SUCCINYLCHOLINE 100MG/5ML SYR IV ONE (23:17)
[2020-12-14] MEDS ORDERED: MIDAZOLAM HCL 1 MG/ML 2ML VIAL ONE (23:18)
[2020-12-14] MEDS ORDERED: ONDANSETRON INJ 2 MG/ML 2 ML VIAL ONE (23:58)
[2020-12-14] MEDS ORDERED: DEXAMETHASONE SOD INJ 4 MG/ML VIAL ONE (23:59)
[2020-12-15] MEDS ORDERED: NEOSTIGMINE METHYLSULFATE 5 MG/5 ML SYR ONE (00:40)
[2020-12-15] MEDS ORDERED: GLYCOPYRROLATE 0.2 MG/ML VIAL ONE (00:40)
--- NOTE | 2020-12-15 00:46 | Post Operative Brief Note ---
Immediate Post Op Note v1 Date of Surgery December 15, 2020 Pre & Post Diagnosis Operation Date: 12/14/20 23:45 Pre-Op Diagnosis: Ruptured left tubal ectopic causing hemoperitoneum. Post-Op Diagnosis: Ruptured left tubal ectopic causing hemoperitoneum. I identified the patient and participated in the time-out.: Yes Procedure Operation Date: 12/14/20 23:45 Actual Procedures p Laparoscopic Ectopic - Pramod Naranjo MD Surgeon Pramod Naranjo MD Boilerhouse Mechanic Dr. Motta Estimated Blood Loss 5 Findings Consistent with Post-Op Diagnosis left ruptured ectopic hemoperitoneum Fluids 850 ml Specimens left ectopic Drains Higgins Catheter Anesthesia Type General Complications none Disposition Accompanied Patient To Recovery: Yes Disposition: Surgical ICU Overlapping Procedure I was present for: the critical portions of procedure. I was immediately available: during the entire case. Back up surgeon: used during listed procedure.
--- NOTE | 2020-12-15 01:06 | Anesthesiology Progress Note ---
Date of Service December 15, 2020 Anesthesia Post Procedure Vital Signs Vital Signs: Temp Pulse Resp BP Pulse Ox 12/15/20 01:05 67 23 98 12/15/20 01:00 69 22 123/67 100 12/15/20 00:55 36.9 C 70 16 116/66 100 12/14/20 23:10 85 18 103/64 95 12/14/20 21:06 87 20 103/70 12/14/20 20:01 96 H 24 100 12/14/20 20:00 93 H 25 H 112/71 100 12/14/20 19:40 86 26 H 12/14/20 19:33 98 12/14/20 19:32 85 15 99 12/14/20 19:30 85 20 116/71 98 12/14/20 19:28 84 20 126/74 99 12/14/20 17:52 36.4 C L 86 18 110/71 100 Pain Intensity Lower Abdomen: Pain Intensity: 5 Transfer of Care Handoff Completed per policy Notes Mental Status: alert / awake / arousable Patient Amnestic to Procedure: Yes Nausea / Vomiting: adequately controlled Pain: adequately controlled Airway Patency, RR, SpO2: stable & adequate BP & HR: stable & adequate Hydration State: stable & adequate Anesthetic Complications: no major complications apparent
[2020-12-15] MEDS ORDERED: ACETAMINOPHEN 325 MG TAB PO PRN (01:34)
[2020-12-15] MEDS ORDERED: IBUPROFEN 600 MG TAB PO PRN (01:34)
[2020-12-15] MEDS ORDERED: KETOROLAC 30 MG/ML VIAL IV PRN (01:34)
[2020-12-15] MEDS ORDERED: ONDANSETRON INJ 2 MG/ML 2 ML VIAL IV PRN ×2 (01:34)
[2020-12-15] MEDS ORDERED: LACTATED RINGER'S 1,000 ML IV SCH (01:45)
--- NOTE | 2020-12-15 01:49 | Operative Report (OR) ---
DATE OF OPERATION: 12/15/2020 PREOPERATIVE DIAGNOSIS: Ruptured left ectopic and hemoperitoneum. POSTOPERATIVE DIAGNOSIS: Ruptured left ectopic and hemoperitoneum. PROCEDURE: Laparoscopic removal of left ectopic with salpingectomy and evacuation of hemoperitoneum. SURGEON: Pramod Naranjo MD PARK WORKER: Darrick Motta MD ANESTHESIA: General. FINDINGS: Left ruptured ectopic , hemoperitoneum. ESTIMATED BLOOD LOSS: 5 mL. URINE OUTPUT: 100 mL. TOTAL FLUIDS: 850 mL. COMPLICATIONS: None. DRAINS: None. CLINICAL HISTORY: The patient is a 20-year-old female, para 1-0-1-1, who presents to the ER with vaginal bleeding. Ectopic diagnosed by ultrasound, revealed presence of hemoperitoneum and mass on the left tube. The patient was consented for an OR case to include removal of ectopic , possible salpingectomy and a timeout was called prior to the start of the case. No antibiotics were given. DESCRIPTION OF PROCEDURE: After satisfactory general endotracheal anesthesia, the patient was prepped and draped in usual sterile fashion. The patient was marked on the left with my initials. Attention was then directed vaginally where a weighted speculum was placed. The Higgins catheter was inserted, draining clear urine. The cervix was grasped with a long Allis clamp and the HUMI intrauterine manipulator was then placed. Attention was then directed abdominally where a small infraumbilical incision with a #15 knife blade was made. The Veress needle was inserted. Approximately 2 L of gas were then instilled creating an artificial pneumoperitoneum. The #5 trocar was then inserted and the scope was inserted. The patient was placed in slight Trendelenburg. There was a left ectopic that was noted and hemoperitoneum. Incision on the left with a 5 mm trocar with a #15 knife blade followed by insertion of a 5 mm trocar with a grasper and then on the right, another incision was made and #11 trocar was then inserted. The ectopic was noted on the left, which was ruptured. The tube was destroyed. The grasper was used to grasp the tube on the left and then a Harmonic scalpel was placed in the right port and then removing the tube and the ectopic. No bleeding was noted. At the end of the procedure, the harmonic was removed and then a small Endobag was placed in the 11 mm port and the ectopic was placed in the bag and then the bag was removed and the port removed. The contents of the pelvic abdominal cavity were then irrigated and then suctioned. The inspection of the left base of the tube was accomplished. No active bleeding was noted. All remaining instruments and air was then removed. The #11 port was closed with a deep 0 Vicryl suture followed by 3-0 Monocryl and the other 2 incisions were closed with 3-0 Monocryl. Approximately 20 mL of 0.5% Marcaine were used for all 3 incisions. The vaginal instruments were removed and the Higgins was removed. The patient was then placed supine on a stretcher and taken to recovery room in stable condition. The final sponge, needle, and instrument count were found to be correct. EBL 5 mL. Please note that Dr. Motta was used as a cosurgeon due to the fact that the patient had previous ectopic on the right several months ago with adhesions at that time and the possibility of adhesions was entertained necessitating probable difficult surgery. He was involved in holding instruments and used in case of further dissection. The appendix was visualized by Dr. Motta and was found to be within normal limits. I attest to the content of the Intraoperative Record and any orders documented therein. Any exception s are noted below.
[2020-12-15] MEDS: LACTATED RINGER'S 1,000 ML IV SCH ×2 (01:50→10:14)
[2020-12-15 10:00] LABS: Hematocrit (blood only) 35.7 % (37-47); Hemoglobin 12.1 g/dL (12.0-16.0); Lymphocytes # (auto) 0.33 K/uL (1.2-3.4); Mean Corpuscular Hgb Conc 33.9 g/dL (32-36); Mean Corpuscular Volume 88.6 fL (80-100); Mean Platelet Volume 9.7 fL (7.4-10.4); Monocytes % (auto) 2.1 %; Neutrophils # (auto) 4.28 K/uL (1.4-6.5); Neutrophils % (auto) 90.9 %; Platelet Count 221 K/uL (130-400); RDW Coefficient of Variation 12.3 % (11.5-14.5); RDW Standard Deviation 39.4 fL (36.4-46.3); Red Blood Count 4.03 M/uL (4.2-5.4); White Blood Count 4.71 K/uL (4.8-10.8)
--- NOTE | 2020-12-15 10:37 | Obstetrical Progress Note ---
Date of Service December 15, 2020 Assessment & Plan Admission and Anticipated Discharge Date Admission Date: December 15, 2020 Subjective Postop check Patient is seen and examined Feels well, no complaints Wants to be discharged. Pain is under control with meds No CP/ SOB/ Dizziness/ N&V/ VB/ Leg pain OOB to BR voided Tolerating clears and regular diet Flatus+ Vital Signs Temp Pulse Pulse Resp BP BP Pulse Ox 12/15/20 07:30 36.6 C 80 18 101/62 98 12/15/20 04:30 36.6 C 84 16 97/63 L 97 12/15/20 03:35 36.7 C 80 18 99/64 L 96 12/15/20 02:30 36.6 C 83 18 103/65 98 12/15/20 02:00 36.5 C 74 18 111/71 98 12/15/20 01:30 36.5 C 72 18 104/66 97 12/15/20 01:20 71 17 98 12/15/20 01:15 74 22 114/60 98 12/15/20 01:10 70 16 95/52 L 100 12/15/20 01:07 65 14 100 12/15/20 01:05 67 23 98 12/15/20 01:00 69 22 123/67 100 12/15/20 00:55 36.9 C 70 16 116/66 100 12/14/20 23:10 85 18 103/64 95 Lab Results 12/14/20 12/14/20 12/14/20 Range/Units 19:34 19:34 19:34 WBC 7.27 (4.8-10.8) K/uL RBC 4.24 (4.2-5.4) M/uL Hgb 12.7 (12.0-16.0) g/dL Hct 37.6 (37-47) % MCV 88.7 (80-100) fL MCH 30.0 (25-34) pg MCHC 33.8 (32-36) g/dL RDW Std Deviation 39.8 (36.4-46.3) fL RDW Coeff of Jamel 12.4 (11.5-14.5) % Plt Count 219 (130-400) K/uL MPV 9.7 (7.4-10.4) fL Immature Gran % (Auto) 0.1 % Neut % (Auto) 70.4 % Lymph % (Auto) 17.7 % [place] % (Auto) 9.5 % Eos % (Auto) 1.9 % Baso % (Auto) 0.4 % Neut # (Auto) 5.11 (1.4-6.5) K/uL Lymph # (Auto) 1.29 (1.2-3.4) K/uL [place] # (Auto) 0.69 H (0.11-0.59) K/uL Eos # (Auto) 0.14 (0-0.5) K/uL Baso # (Auto) 0.03 (0-0.2) K/uL Immature Gran # (Auto) 0.01 (0.00-0.02) K/uL PT 9.8 (9.0-12.0) Seconds INR 1.0 (0.9-1.1) APTT 27.1 (21.0-31.0) Seconds PTT Ratio 1.0 Sodium (136-145) mmol/L Potassium (3.5-5.1) mmol/L Chloride (98-107) mmol/L Carbon Dioxide (21-32) mmol/L Anion Gap (3-11) BUN (7-18) mg/dl Creatinine (0.6-1.2) mg/dl Est Cr Clr Drug Dosing ml/min Est GFR ( Amer) Est GFR (Non-Af Amer) BUN/Creatinine Ratio (10-20) Glucose (70-99) mg/dl Calcium (8.5-10.1) mg/dl Total Bilirubin (0.2-1) mg/dl AST (15-37) U/L ALT (12-78) U/L Alkaline Phosphatase (45-117) U/L Total Protein (6.4-8.2) gm/dl Albumin (3.4-5.0) gm/dl Globulin (2.5-4.0) gm/dl Albumin/Globulin Ratio (0.9-2) HCG, Quant mIU/ml Urine Color Urine Appearance (Clear) Urine pH (4.5-7.5) Ur Specific [place] (1.000-1.030) Urine Protein (Negative) Urine Glucose (UA) (Negative) Urine Ketones (Negative) Urine Blood (Negative) Urine Nitrite (Negative) Urine Bilirubin (Negative) Urine Urobilinogen (Negative) Ur Leukocyte Esterase (Negative) Urine WBC (Auto) (0-5) /hpf Urine RBC (Auto) (0-4) /hpf U Hyaline Cast (Auto) (0-5) /lpf U Epithel Cells (Auto) (0-5) /lpf Urine Bacteria (Auto) (Negative) Ur Renal Epithelial Cell Urine Yeast POC Ur Test (NEG) COVID-19 Eval Order SARS-CoV-2 (PCR) (Negative) Influenza Type A (PCR) (Neg) Influenza Type B (PCR) (Neg) RSV (RT-PCR) (Neg) Blood Type O Positive 12/14/20 12/14/20 12/14/20 Range/Units 19:34 19:34 21:30 WBC (4.8-10.8) K/uL RBC (4.2-5.4) M/uL Hgb (12.0-16.0) g/dL Hct (37-47) % MCV (80-100) fL MCH (25-34) pg MCHC (32-36) g/dL RDW Std Deviation (36.4-46.3) fL RDW Coeff of Jamel (11.5-14.5) % Plt Count (130-400) K/uL MPV (7.4-10.4) fL Immature Gran % (Auto) % Neut % (Auto) % Lymph % (Auto) % [place] % (Auto) % Eos % (Auto) % Baso % (Auto) % Neut # (Auto) (1.4-6.5) K/uL Lymph # (Auto) (1.2-3.4) K/uL [place] # (Auto) (0.11-0.59) K/uL Eos # (Auto) (0-0.5) K/uL Baso # (Auto) (0-0.2) K/uL Immature Gran # (Auto) (0.00-0.02) K/uL PT (9.0-12.0) Seconds INR (0.9-1.1) APTT (21.0-31.0) Seconds PTT Ratio Sodium 139 (136-145) mmol/L Potassium 3.5 (3.5-5.1) mmol/L Chloride 105 (98-107) mmol/L Carbon Dioxide 26 (21-32) mmol/L Anion Gap 8.0 (3-11) BUN 8 (7-18) mg/dl Creatinine 0.60 (0.6-1.2) mg/dl Est Cr Clr Drug Dosing 147.4 ml/min Est GFR ( Amer) > 150.0 Est GFR (Non-Af Amer) 131.2 BUN/Creatinine Ratio 12.6 (10-20) Glucose 79 (70-99) mg/dl Calcium 9.1 (8.5-10.1) mg/dl Total Bilirubin 0.3 (0.2-1) mg/dl AST 10 L (15-37) U/L ALT 26 (12-78) U/L Alkaline Phosphatase 69 (45-117) U/L Total Protein 7.7 (6.4-8.2) gm/dl Albumin 4.0 (3.4-5.0) gm/dl Globulin 3.7 (2.5-4.0) gm/dl Albumin/Globulin Ratio 1.1 (0.9-2) HCG, Quant 1719 mIU/ml Urine Color Urine Appearance (Clear) Urine pH (4.5-7.5) Ur Specific [place] (1.000-1.030) Urine Protein (Negative) Urine Glucose (UA) (Negative) Urine Ketones (Negative) Urine Blood (Negative) Urine Nitrite (Negative) Urine Bilirubin (Negative) Urine Urobilinogen (Negative) Ur Leukocyte Esterase (Negative) Urine WBC (Auto) (0-5) /hpf Urine RBC (Auto) (0-4) /hpf U Hyaline Cast (Auto) (0-5) /lpf U Epithel Cells (Auto) (0-5) /lpf Urine Bacteria (Auto) (Negative) Ur Renal Epithelial Cell Urine Yeast POC Ur Test (NEG) COVID-19 Eval Order CovFluRsv at [facility] SARS-CoV-2 (PCR) (Negative) Influenza Type A (PCR) (Neg) Influenza Type B (PCR) (Neg) RSV (RT-PCR) (Neg) Blood Type 12/14/20 12/14/20 12/14/20 Range/Units 21:30 Unknown Unknown WBC (4.8-10.8) K/uL RBC (4.2-5.4) M/uL Hgb (12.0-16.0) g/dL Hct (37-47) % MCV (80-100) fL MCH (25-34) pg MCHC (32-36) g/dL RDW Std Deviation (36.4-46.3) fL RDW Coeff of Jamel (11.5-14.5) % Plt Count (130-400) K/uL MPV (7.4-10.4) fL Immature Gran % (Auto) % Neut % (Auto) % Lymph % (Auto) % [place] % (Auto) % Eos % (Auto) % Baso % (Auto) % Neut # (Auto) (1.4-6.5) K/uL Lymph # (Auto) (1.2-3.4) K/uL [place] # (Auto) (0.11-0.59) K/uL Eos # (Auto) (0-0.5) K/uL Baso # (Auto) (0-0.2) K/uL Immature Gran # (Auto) (0.00-0.02) K/uL PT (9.0-12.0) Seconds INR (0.9-1.1) APTT (21.0-31.0) Seconds PTT Ratio Sodium (136-145) mmol/L Potassium (3.5-5.1) mmol/L Chloride (98-107) mmol/L Carbon Dioxide (21-32) mmol/L Anion Gap (3-11) BUN (7-18) mg/dl Creatinine (0.6-1.2) mg/dl Est Cr Clr Drug Dosing ml/min Est GFR ( Amer) Est GFR (Non-Af Amer) BUN/Creatinine Ratio (10-20) Glucose (70-99) mg/dl Calcium (8.5-10.1) mg/dl Total Bilirubin (0.2-1) mg/dl AST (15-37) U/L ALT (12-78) U/L Alkaline Phosphatase (45-117) U/L Total Protein (6.4-8.2) gm/dl Albumin (3.4-5.0) gm/dl Globulin (2.5-4.0) gm/dl Albumin/Globulin Ratio (0.9-2) HCG, Quant mIU/ml Urine Color Red Urine Appearance Clear (Clear) Urine pH 7.0 (4.5-7.5) Ur Specific [place] 1.005 (1.000-1.030) Urine Protein 1+ H (Negative) Urine Glucose (UA) Negative (Negative) Urine Ketones Negative (Negative) Urine Blood 3+ H (Negative) Urine Nitrite Negative (Negative) Urine Bilirubin Negative (Negative) Urine Urobilinogen Negative (Negative) Ur Leukocyte Esterase 1+ H (Negative) Urine WBC (Auto) 10-30 H (0-5) /hpf Urine RBC (Auto) >30 H (0-4) /hpf U Hyaline Cast (Auto) 1-5 (0-5) /lpf U Epithel Cells (Auto) >30 H (0-5) /lpf Urine Bacteria (Auto) Negative (Negative) Ur Renal Epithelial Cell Not Reportable Urine Yeast Not Reportable POC Ur Test POS (NEG) COVID-19 Eval Order SARS-CoV-2 (PCR) NEGATIVE (Negative) Influenza Type A (PCR) Negative (Neg) Influenza Type B (PCR) Negative (Neg) RSV (RT-PCR) Negative (Neg) Blood Type 12/15/20 Range/Units 09:22 WBC 4.71 L (4.8-10.8) K/uL RBC 4.03 L (4.2-5.4) M/uL Hgb 12.1 (12.0-16.0) g/dL Hct 35.7 L (37-47) % MCV 88.6 (80-100) fL MCH 30.0 (25-34) pg MCHC 33.9 (32-36) g/dL RDW Std Deviation 39.4 (36.4-46.3) fL RDW Coeff of Jamel 12.3 (11.5-14.5) % Plt Count 221 (130-400) K/uL MPV 9.7 (7.4-10.4) fL Immature Gran % (Auto) 0.0 % Neut % (Auto) 90.9 % Lymph % (Auto) 7.0 % [place] % (Auto) 2.1 % Eos % (Auto) 0.0 % Baso % (Auto) 0.0 % Neut # (Auto) 4.28 (1.4-6.5) K/uL Lymph # (Auto) 0.33 L (1.2-3.4) K/uL [place] # (Auto) 0.10 L (0.11-0.59) K/uL Eos # (Auto) 0.00 (0-0.5) K/uL Baso # (Auto) 0.00 (0-0.2) K/uL Immature Gran # (Auto) 0.00 (0.00-0.02) K/uL PT (9.0-12.0) Seconds INR (0.9-1.1) APTT (21.0-31.0) Seconds PTT Ratio Sodium (136-145) mmol/L Potassium (3.5-5.1) mmol/L Chloride (98-107) mmol/L Carbon Dioxide (21-32) mmol/L Anion Gap (3-11) BUN (7-18) mg/dl Creatinine (0.6-1.2) mg/dl Est Cr Clr Drug Dosing ml/min Est GFR ( Amer) Est GFR (Non-Af Amer) BUN/Creatinine Ratio (10-20) Glucose (70-99) mg/dl Calcium (8.5-10.1) mg/dl Total Bilirubin (0.2-1) mg/dl AST (15-37) U/L ALT (12-78) U/L Alkaline Phosphatase (45-117) U/L Total Protein (6.4-8.2) gm/dl Albumin (3.4-5.0) gm/dl Globulin (2.5-4.0) gm/dl Albumin/Globulin Ratio (0.9-2) HCG, Quant mIU/ml Urine Color Urine Appearance (Clear) Urine pH (4.5-7.5) Ur Specific [place] (1.000-1.030) Urine Protein (Negative) Urine Glucose (UA) (Negative) Urine Ketones (Negative) Urine Blood (Negative) Urine Nitrite (Negative) Urine Bilirubin (Negative) Urine Urobilinogen (Negative) Ur Leukocyte Esterase (Negative) Urine WBC (Auto) (0-5) /hpf Urine RBC (Auto) (0-4) /hpf U Hyaline Cast (Auto) (0-5) /lpf U Epithel Cells (Auto) (0-5) /lpf Urine Bacteria (Auto) (Negative) Ur Renal Epithelial Cell Urine Yeast POC Ur Test (NEG) COVID-19 Eval Order SARS-CoV-2 (PCR) (Negative) Influenza Type A (PCR) (Neg) Influenza Type B (PCR) (Neg) RSV (RT-PCR) (Neg) Blood Type PE: General: Alert, orientedx3, NAD CVS: S1S2 RRR Lungs: CTAB Abd: soft, NT, ND, BS+, Incisions C/D/I No VB Ext: NT, no edema, SCD's on AP: 20 yo female s/p Lap left salpingectomy, pod#0 VSS Afebrile doing well Continue to routine postop care D/C home f/u in office Results & Data ([facility]) Vital Signs (Past 12 Hours) Vital Signs Temp Pulse Pulse Resp BP BP Pulse Ox 12/15/20 07:30 36.6 C 80 18 101/62 98 12/15/20 04:30 36.6 C 84 16 97/63 L 97 12/15/20 03:35 36.7 C 80 18 99/64 L 96 12/15/20 02:30 36.6 C 83 18 103/65 98 12/15/20 02:00 36.5 C 74 18 111/71 98 12/15/20 01:30 36.5 C 72 18 104/66 97 12/15/20 01:20 71 17 98 12/15/20 01:15 74 22 114/60 98 12/15/20 01:10 70 16 95/52 L 100 12/15/20 01:07 65 14 100 12/15/20 01:05 67 23 98 12/15/20 01:00 69 22 123/67 100 12/15/20 00:55 36.9 C 70 16 116/66 100 12/14/20 23:10 85 18 103/64 95
== END 2020-12-15 11:31 | disposition home or self-care (01) ==
LOC: ED 17:44 → OR 23:10 → 4N 12-15 01:34 → INTOOBSV 12-15 01:34